=== PATIENT | female | born 1990 | race Caucasian/White ===

== ENCOUNTER → 2016-09-27 | Outpatient (CLI) | payer OTHER, BC ==
[~2016-09-27] MED LIST: ALBUTEROL20 ml INH; CLARITIN10 M3; HYDROCODON-ACE1 EAC7 PO; LIBRAX1 CAP 5/2. DOB; NECON1 TA1 PO; OMEPRAZOLE40 M1 PO; PROTONIX PO; ZOFRAN PO
--- NOTE | ~2016-09-27 | NM22 ---
[facility] A Service of [facility] & [facility] RADIOLOGY TEXT RESULTS PATIENT: SAGAR WANG LOCATION: [facility] : [birth year] UNIT #: [id number] AGE: [address]: Armond Sibley MD SEX: F ORDER DR: [id number] [facility] [address] [place], [place] [address] [id number] O MR#: [id number] Acc #: [id number] NAME: SAGAR WANG : 1990 SEX: F STUDY DATE/TIME: 09/27/2016 13:13 UNIT: [facility] ROOM: STUDY DESCRIPTION: NM Hepatobiliary W GB Pharm Attending Physician: Armond Sibley M.D. Referring Physician: Armond Sibley M.D. Ordering Physician: Armond Sibley M.D. Primary Care Physician: Martin Velazco M.D. MEDICAL IMAGING REPORT This report is preliminary unless electronic signature is present EXAM HIDA scan with Kinevac CCK, 09/27/2016. HISTORY Right upper quadrant abdominal pain and nausea and vomiting, constant indigestion, acid reflux, chest pain, right flank pain, abdominal bloating and gas. Symptoms for 1 month, worsening in the past 2 weeks. FINDINGS The patient received an intravenous injection of 5.57 mCi of technetium-99m Choletec for hepatobiliary imaging. 1 hour following the injection of the radiopharmaceutical, the patient received an intravenous injection of 1.5 mcg of Kinevac. There was homogeneous distribution of the radiotracer throughout the liver. Gallbladder activity was seen by 15 minutes post injection of the radiopharmaceutical. Following Kinevac injection, the gallbladder ejection fraction was 50.7% (normal is greater than 30%). IMPRESSION Normal HIDA scan with gallbladder ejection fraction of 50.7%. Dictated by... Marcelo Gibson M.D. THIS IS AN ELECTRONICALLY VERIFIED REPORT Marcelo Gibson M.D. at 09/28/2016 7:35 AM MELISA/nila TD: 09/27/2016 16:30 [facility] A Service of [facility] & [facility] RADIOLOGY TEXT RESULTS PATIENT: SAG[facility]ANG [id number] [birth year] UNIT #: [id number] AGE: [address]: Armond Sibley MD SEX: F ORDER DR: JOB #: [id number] MEDICAL IMAGING REPORT COPY
== END | disposition home or self-care (01) ==
LOC: CNUC 11:39
DX: R10.11 Right upper quadrant pain (principal)
CPT/HCPCS: 78227; A9537; J2805

== ENCOUNTER → 2016-10-05 | Day surgery (SDC) | payer OTHER, BC ==
--- NOTE | ~2016-10-05 | OR ---
Unit #: [id number] #: [id number] Patient: SAGAR WANG [id number] [address] [place], [place] [address] [id number] O MR#: [id number] NAME: SAGAR WANG ROOM: Date of Procedure: 10/05/2016 Admission Date: 10/05/2016 Surgeon: Armond Sibley M.D. : 1990 Attending Physician: Armond Sibley M.D. Primary Care Physician: Martin Esquivel M.D. OPERATIVE REPORT JOB NOTE: CC: DR. ESQUIVEL. PREOPERATIVE DIAGNOSIS Right upper quadrant pain, nausea, and vomiting. POSTOPERATIVE DIAGNOSIS Gastritis. PROCEDURE PERFORMED Esophagogastroduodenoscopy to third portion of the duodenum with biopsy of the gastric antrum x3. ANESTHESIA Monitored anesthesia. INDICATIONS FOR PROCEDURE The patient is a 25-year-old female, complaining of intermittent right upper quadrant pain, associated with nausea and vomiting and often exacerbated by eating. However ultrasound of the gallbladder was normal and a followup HIDA scan showed an ejection fraction of 50%. The patient did state however that when she was administered the Kinevac stimulation, she did have recurrence of her symptoms. However since the ejection fraction is 50%, we plan on doing an EGD to rule out other causes of these upper GI symptoms prior to consideration of cholecystectomy. DESCRIPTION OF PROCEDURE The patient was admitted to [facility], positively identified, and transported to the endoscopy unit and after appropriate monitoring and positioning, she was sedated by the nurse operating room assistant. Bite block had been placed and the endoscope was passed through the oral cavity into the esophagus. Under direct vision, we passed through the esophagus and the stomach, insufflated the stomach, and passed through the pylorus down the third portion of duodenum. Duodenum and duodenal bulb were normal. In the stomach, she did have some erythematous changes to the mucosa, so a biopsy for CLOtesting and pathology was performed. In retroflexing the scope above the incisura, no other findings in the upper fundus or cardia were noted. After the biopsies had been completed, we came back in a retrograde fashion. The GE junction was well demarcated at 40 cm from the incisors and the esophagus was normal. There was no esophagitis. No [place] mucosa. No hiatal hernia. Larynx was visualized and was normal. The patient tolerated the procedure well and was transported to recovery in stable condition. At this time, we will await Unit #: [id number] #: [id number] Patient: SAGAR WANG the results of the CLOtest and pathology reports. We will act on these as appropriate. In the interim, I will start her on some Librax caps to see if this could be related to irritable bowel syndrome. However, she has normal CLOtest and pathology results and she does not respond to the Librax caps. This may be a patient who still would benefit from cholecystectomy. Dictated by... Roselia Diego/sue TD: 10/05/2016 21:25 JOB #: [id number] OPERATIVE REPORT X Armond Sibley MD X PROCEDURE OPERATIVE NOTE
== END | disposition home or self-care (01) ==
LOC: COPS 05:28
DX: K29.50 Unspecified chronic gastritis without bleeding (principal); R10.11 Right upper quadrant pain; K21.9 Gastro-esophageal reflux disease without esophagitis; J45.909 Unspecified asthma, uncomplicated; E78.5 Hyperlipidemia, unspecified; Z91.040 Latex allergy status
CPT/HCPCS: 84703; 87077; 88305; 88312; J2250

== ENCOUNTER → 2016-10-16 | Day surgery (SDC) | payer OTHER, BC ==
--- NOTE | ~2016-10-16 | OR ---
Unit #: [id number] #: [id number] Patient: SAGAR WANG [id number] [facility] [address] [place] [id number] O MR#: [id number] NAME: SAGAR WANG ROOM: Date of Procedure: 10/16/2016 Admission Date: 10/16/2016 Surgeon: Armond Sibley M.D. : 1990 Attending Physician: Armond Sibley M.D. Primary Care Physician: Martin Velazco M.D. OPERATIVE REPORT PREOPERATIVE DIAGNOSIS Chronic acalculous cholecystitis. POSTOPERATIVE DIAGNOSIS Chronic acalculous cholecystitis. PROCEDURE PERFORMED Laparoscopic cholecystectomy. AGILE SCRUM COACH Dr. Cartagena. ANESTHESIA General endotracheal anesthesia. ESTIMATED BLOOD LOSS Less than 20 mL. INDICATIONS FOR PROCEDURE A 25-year-old female, who has been having persistent and more frequent episodes of postprandial right upper quadrant pain radiating to the back associated with nausea and nonbloody emesis. She underwent full evaluation and was felt to have acalculous cholecystitis. DESCRIPTION OF PROCEDURE The patient was admitted to [facility], positively identified, and transported to the operating room, and after induction of general endotracheal anesthesia, she was prepped and draped in usual sterile fashion. A 5-mm infraumbilical incision was made. Veress needle was placed. Pneumoperitoneum was created. Then, a 5-mm trocar was placed. Laparoscope was introduced into the peritoneal cavity. Under direct vision, the epigastric and lateral ports were placed. Gallbladder was grasped and elevated. The infundibulum was identified and retracted laterally and the triangle of Calot was dissected out clearly identifying the cystic duct, gallbladder, and cystic duct-common duct junction and the posteriorly placed cystic artery. The cystic duct was swept upwards and then a single clip was placed in the cystic duct centered to gallbladder. Three clips were placed distally and the cystic duct was sharply divided. The posteriorly placed cystic artery was doubly clipped proximally and distally and divided. The gallbladder was then dissected out of the hepatic fossa using cautery dissection. Once it was freed up from its hepatic attachments, it was brought out through the epigastric port. Unit #: [id number] #: [id number] Patient: SAGAR WANG There was excellent hemostasis. The clips were well positioned. The epigastric fascial defect was closed with the neoClose device. The closure was air-tight and there was good hemostasis. After that, I reduced pneumoperitoneum and removed the laparoscope and trocars. 0.5% Marcaine with epinephrine was infiltrated in each trocar site. The skin was closed with 4-0 Monocryl subcuticular closure and Dermabond skin adhesive. Sponges and needle counts were correct x3. The patient tolerated the procedure well and transported to recovery in stable condition. Findings and postoperative instructions were discussed with her family. Dictated by... Roselia Diego/sue TD: 10/17/2016 02:23 JOB #: [id number] OPERATIVE REPORT Page 1 of 1 X Armond Sibley MD X PROCEDURE OPERATIVE NOTE
[2016-10-16 07:58] LABS: HEMATOCRIT 41.5 % (35.0-45.0); HEMOGLOBIN 13.7 gm/dL (12.0-16.0); MEAN CELL VOLUME 84.7 FL (83-96); MEAN CORPUSCULAR HEMOGLOBIN 27.9 PG (28-34); MEAN CORPUSCULAR HGB CONC 32.9 g/dL (30-36); MEAN PLATELET VOLUME 8.6 FL (6.5-11.5); RED BLOOD COUNT 4.9 X10e (3.90-5.30); WHITE BLOOD COUNT 7.4 X10e3 (4.0-10.5)
[2016-10-16 08:03] LABS: ALBUMIN SERUM 4.3 g/dL (3.5-5.0); ALKALINE PHOSPHATASE 59 U/L (32-92); ALT (SGPT) 15 U/L (10-40); AST (SGOT) 20 U/L (10-42); BILIRUBIN,TOTAL 0.3 mg/dL (0.2-2.0); BLOOD UREA NITROGEN 7 mg/dL (9-23); CALCIUM SERUM 9.4 mg/dL (8.4-10.2); CARBON DIOXIDE 27 mmol/L (22-31); CHLORIDE 102 mmol/L (100-111); CREATININE SERUM 0.7 mg/dL (0.6-1.4); GLOM FILT RATE Estimated ABOVE60 mL/min (>60); GLUCOSE FASTING 94 mg/dL (70-110); POTASSIUM 3.9 mmol/L (3.5-5.1); PROTEIN TOTAL SERUM 7.4 g/dL (6.0-8.3); SODIUM 137 mmol/L (135-145)
== END | disposition home or self-care (01) ==
LOC: CSUR 07:02
PROVIDERS: Specialist
DX: K81.1 Chronic cholecystitis (principal); K21.9 Gastro-esophageal reflux disease without esophagitis; E78.5 Hyperlipidemia, unspecified; Z91.040 Latex allergy status
CPT/HCPCS: 80053; 84703; 85027; 88304; J0131; J0360; J1100; J1170; J1610; J2250; J2405; J3010